=== PATIENT | female | born 1960 | race Caucasian/White ===

== ENCOUNTER 2016-11-13 14:04 | Emergency (ER) | payer OTHER ==
[~2016-11-13] VITALS: Ht 149.9 cm; Wt 86.4 kg
[2016-11-13 14:09] VITALS: TEMP 36.8; Ht 149.9 cm; Wt 86.4 kg
[2016-11-13] MEDS ORDERED: CLON1TAB3 PO (14:47)
[2016-11-13] MEDS ORDERED: TEMA30CA4 PO (14:47)
[2016-11-13] MEDS ORDERED: PRAM1TAB6 PO (14:47)
[2016-11-13] MEDS ORDERED: CYCL10TA6 PO (14:47)
[2016-11-13] MEDS ORDERED: OXYC-57 PO (14:47)
[2016-11-13] MEDS ORDERED: IBUP-1428 PO (14:47)
[2016-11-13] MEDS ORDERED: DULO60CA44 PO (14:47)
[2016-11-13] MEDS ORDERED: AMIT150T PO (14:47)
--- NOTE | 2016-11-13 15:25 | DIAGNOSTIC IMAGING REPORT ---
RIGHT THUMB 3 VIEWS, RIGHT WRIST 4 VIEWS HISTORY: R wrist and thumb pain Right COMPARISON: None. FINDINGS: There is no fracture or dislocation. Mild soft tissue swelling along the ulnar side of the wrist. No radiopaque foreign bodies. 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 IMPRESSION: No fractures within the right thumb or right wrist. Electronically signed by: Randall Mercado M.D. 11/13/2016 3:23 PM Dictated Date/Time: 11/13/2016 3:22 PM
[2016-11-13] MEDS ORDERED: PRED20TA PO (15:40)
[2016-11-13 15:50] VITALS: BP 148/107; PULSE 87; O2SAT 96
--- NOTE | 2016-11-14 22:03 | EMERGENCY ROOM VISIT NOTE ---
ED Visit Note First contact with patient: 14:37 Chief Complaint: Right thumb and arm pain. History of Present Illness: Ms. Rao is a 56-year-old white female who ambulates into the ED accompanied by her complaining of right thumb pain radiating up her arm to her shoulder. Historically patient reports approximately 20 years ago she broke her thumb; she doesn't know exactly which bones were broken but she was casted and did not require surgery. Patient reports approximately 3 weeks ago she was trying to take her child out of a car seat and injured her thumb and developed right thumb pain over the MCP joint. Then she reports approximately 3-4 days after that episode she was using a najera to unlock her house and somehow twisted her thumb; she just demonstrates a hyper abduction injury of the thumb. Initially the pain was mild and gradually increased in intensity. She reports approximately 2 weeks ago she was seen at [facility] and reports she had x-rays done and was told that she had no fractures or dislocations. She was not offered immobilization and/or referral to orthopedics. Patient reports over the last 2 weeks her pain has greatly increased in intensity. She places her discomfort over the right first MCP joint and then it extends along the radial aspect of the forearm and up the lateral aspect of the upper arm and into the superior aspect of the shoulder. She describes her pain as a sharp, throbbing and achy sensation. She rates her discomfort 10/10. Her pain worsens with palpation throughout the arm and shoulder. She has not identified any alleviating factors related to the pain. She is currently on a chronic pain management plan in which she is taking narcotics and ibuprofen as had no relief of her discomfort. Associated with her pain she reports she's been having difficulty picking up objects with her hand because she cannot close her thumb around the object; she is unsure if this is true weakness or just pain related. She denies any associated symptoms of skin eruptions, skin color changes, thumb swelling, thumb/hand/elbow numbness, previous surgeries to the thumb or the arm. Review of Systems: As noted above in history of present illness. Past Medical History: As previously noted, fibromyalgia, depression, anxiety, chronic pain, restless leg syndrome, status post 2 section, eye cataract surgery and unspecified ovary removal. Current Medications: Medications Dose Route/Sig Max Daily Dose Days Date Category Dose Instructions Motrin (Ibuprofen) 800 Mg Tab 800 Mg PO Q8 PRN 11/13/16 Reported Pramipexole Dihydrochlori (Pramipexole Dihydrochloride) 1 Mg Tab 1 Mg PO DAILY 11/13/16 Reported Restoril (Temazepam) 30 Mg Cap 30 Mg PO HS 11/13/16 Reported Amitriptyline Hcl 150 Mg Tab 150 Mg PO HS 30 11/13/16 Reported Flexeril (Cyclobenzaprine Hcl) 10 Mg Tab 10 Mg PO DAILY 11/13/16 Reported Klonopin (Clonazepam) 1 Mg Tab 1 Mg PO BID 11/13/16 Reported Percocet 5MG/325MG (Oxycodone/Acetaminophen) Tab 1 Tablets PO BID 11/13/16 Reported PAIN Cymbalta (Duloxetine Hcl) 60 Mg Cap 60 Mg PO BID 11/13/16 Reported Allergies to Medications: Acetaminophen, Darvocet. Social History: Patient is not employed; she lives with her and feels safe in her home environment; she denies tobacco use and admits rare social alcohol use. Physical Examination: Vital Signs: Date Time Temp Pulse Resp B/P (MAP) Pulse Ox O2 Delivery O2 Flow Rate FiO2 11/13/16 15:50 87 18 148/107 96 11/13/16 14:09 36.8 90 17 164/84 94 Room Air GENERAL: 56-year-old female in mild distress due to pain, nontoxic-appearing, afebrile and hemodynamically stable. NEUROLOGICAL: Awake, alert and oriented to person, place and time. Answering questions appropriately and following commands. Normal gait. Good hand eye coordination. SKIN: Warm, dry and pink. No soft tissue eruptions or trauma noted. RIGHT UPPER EXTREMITY: No gross bony deformity. Patient has tenderness to the superior aspect of the trapezius and extending down the arm through the deltoid muscle, over the medial epicondylar area of the elbow, throughout the radial distribution of the forearm and over the thumb. I do not appreciate any bony deformity, bony crepitus, swelling, erythema or skin eruptions. She does have full range of motion of the shoulder, elbow, forearm. She has slightly limited range of motion of the thumb predominantly with opposition with the little finger but she does have full range of motion in flexion and extension of the MCP and interphalangeal joint. Throughout the thumb the skin was warm and pink and capillary refill is brisk. She is able to distinguish light sensations through all dermatomes of the thumb. ED Course: Patient is assessed as noted above. Patient's medication list was reviewed. Right Wrist X-Ray: Was read by myself and the radiologist showing no acute fractures or dislocations. Radiologist notes mild soft tissue swelling along the ulnar side of the wrist and mild osteoarthritis at the radiocarpal and ST-T joints. Right Thumb X-Rays: Were read by myself and the radiologist and shows no acute fractures of the right thumb and makes the same notifications as noted above. Patient was offered pain medications and refused. I felt this was most likely an inflammatory process slight offered inpatient excepted him receive received 60 mg of prednisone by mouth. Patient was placed in a thumb spica splint. Patient was educated about today's findings and instructed on her treatment plan ; she verbalizes understanding and agreement with this plan. Clinical Impression: Right thumb and arm pain. Decision-Making: Initially my differential diagnosis I considered tendinitis, bursitis, cervical radiculopathy, fracture, dislocation, acute on chronic pain and other causes. Disposition: Patient discharged home in stable condition accompanied by her ; prior to departure she was reassessed and subjectively reported she was feeling better and rated her discomfort 5/10. Plan: Patient was encouraged to continue her current medication as prescribed. Patient was placed on a prescription for prednisone and instructed on their use. Patient was encouraged to follow-up with her PCP for recheck and possible referral to orthopedics. Patient was encouraged return to the ED for worsening/uncontrolled pain, uncontrolled redness/swelling, fevers, worsening arm/hand pain, worsening finger weakness or any new/concerning symptoms.
== END 2016-11-13 15:55 | disposition home or self-care (01) ==
LOC: C.EDB 14:07 → C.EDD 15:55
DX: M25.541 Pain in joints of right hand (principal); F32.9 Major depressive disorder, single episode, unspecified; F41.9 Anxiety disorder, unspecified; G89.29 Other chronic pain; Z88.6 Allergy status to analgesic agent; Z88.8 Allergy status to other drugs, medicaments and biological substances